=== PATIENT | male | born 1965 | race American Indian/Alaskan Native ===

== ENCOUNTER 2019-12-08 16:47 | Emergency (ER) | payer OTHER ==
[2019-12-08] MEDS ORDERED: LIDOCAINE (1%) 10 MG/1 ML VIAL 20 ML MDV INFILTRATI ONE (17:55)
[2019-12-08] MEDS ORDERED: PHENYLEPHRINE 1 MG, SODIUM CHLORIDE P/F VIAL 10 ML 9.9 ML IJ**NOT IV ONE (17:55)
[2019-12-08] MEDS ORDERED: SODIUM CHLORIDE 0.9% 1000 ML 1,000 ML IV ONE (17:56)
--- NOTE | 2019-12-08 17:59 | Emergency Department Report ---
HPI - General Chief Complaint: Urogenital-Male Time Seen by Provider: 12/08/19 17:27 - HPI HPI: 54-year-old male presents to the emergency department with a painful erection since yesterday morning. Just prior to this, the patient had taken 2 of his trazodone, that he takes for PTSD. Patient says that he tried to treated at home with "ice, my girl" and thought it would go away. This morning he called the [facility] and "I had to wait for them to call me back and they eventually did and told me just to go to the ER." This has never happened to him previously. ED Past Medical Hx - Past Medical History Previous Medical History?: Yes Hx Psychiatric Treatment: Yes (PTSD) Hx Asthma: Yes - Surgical History Past Surgical History?: No - Social History Smoking Status: Current Every Day Smoker Substance Use Type: None ED Review of Systems ROS: Stated complaint: PRIAPISM Other details as noted in HPI Comment: All other systems reviewed and negative Constitutional: denies: chills, fever Respiratory: denies: shortness of breath Cardiovascular: denies: chest pain Gastrointestinal: denies: abdominal pain, vomiting Genitourinary: other (priapism). denies: testicular pain Skin: denies: rash, lesions Physical Exam - Physical Exam Vital Signs: Vital Signs 12/08/19 17:07 Temperature 98.4 F Pulse Rate 84 Respiratory 16 Rate Blood Pressure 167/106 O2 Sat by Pulse 97 Oximetry Physical Exam: GENERAL: The patient is well-developed well-nourished. HENT: Normocephalic. Atraumatic. Patient has moist mucous membranes. EYES: Extraocular motions are intact. NECK: Supple. Trachea is midline. CHEST/LUNGS: Clear to auscultation. There is no respiratory distress noted. HEART/CARDIOVASCULAR: Regular. There is no tachycardia. ABDOMEN: Abdomen is soft, nontender. Patient has normal bowel sounds. SKIN: Skin is warm and dry. NEURO: The patient is awake, alert, and oriented. The patient is cooperative. The patient has no focal neurologic deficits. Normal speech. MUSCULOSKELETAL: There is no tenderness or deformity. There is no evidence of acute injury. : Patient has an erection. Penile shaft is tender to palpation. No erythema, swelling, rash or lesions. ED Course Vital Signs 12/08/19 17:07 Temperature 98.4 F Pulse Rate 84 Respiratory 16 Rate Blood Pressure 167/106 O2 Sat by Pulse 97 Oximetry - Consultations Consultation #1: 12/08/19 20:40 I attempted to treat the patient's priapism with a dorsal penile block followed by drainage of blood, irrigation, and injection of phenylephrine. This did not work. His cavernous venous blood gas came back showing severe ischemia. For these reasons I spoke with the neurologist at [place], Dr. Banuelos, who has accepted the patient for transfer to the [facility] for further evaluation. - Nerve Block Consent Obtained: verbal consent Time Out Performed: Yes Local Anesthetic Used: Lidocaine 1% Amount of anesthesia used: 6 Nerve Blocks: other (Dorsal penile block) Procedure Successful: Yes Complications: none Patient Tolerated Procedure: well - Penile Procedure Consent Obtained: verbal consent Time Out Performed: Yes Indication: priapism management Procedural Sedation: No Local Anesthesia Used: Penile Nerve Block Amount of Anesthesia Used (mls): 6 Priapism Management: aspiration, phenylephrine injection Complications: none Patient Tolerated Procedure: well ED Medical Decision Making - Medical Decision Making This patient presents with a 36-hour history of priapism that appears most likely secondary to his trazodone use. Patient was given a dorsal penile block with good success and without any obvious complications. Cavernosus venous blood gas was obtained that shows a pH of 6.85, PCO2 of 105, and a PO2 of 3 that is all concerning for severe ischemia from the priapism. We attempted treatment with aspiration, irrigation and phenylephrine injection but there was no improvement in the priapism. For this reason, along with the venous blood gas results, I contacted [facility] and the patient was accepted for transfer to their emergency department for evaluation from the urology service. Critical Care Time: No Critical care attestation.: If time is entered above; I have spent that time in minutes in the direct care of this critically ill patient, excluding procedure time. ED Disposition Clinical Impression: Priapism Hypertension Qualifiers: Hypertension type: essential hypertension Qualified Code(s): I10 - Essential (primary) hypertension Disposition: DC/TX-70 ANOTHER TYPE HLTHCARE Is pt being admited?: No Condition: Fair Time of Disposition: 22:15
[2019-12-08 18:41] LABS: ABG Base Excess -17.6 mmol/L (-2.0-3.0); ABG HCO3 18.3 mmol/L (20.0-26.0)
[2019-12-08 18:54] LABS: ABG Methemoglobin 0.6 % (0.0-1.5); ABG Oxygen Saturation 2.5 % (95.0-99.0)
[2019-12-08 19:00] LABS: ABG PH 6.856 pH Units (7.350-7.450); ABG PO2 3.2 mm Hg (80.0-90.0)
[2019-12-08 20:13] VITALS: BP 168/121
== END 2019-12-08 20:52 | disposition other institution (70) ==
LOC: ED 16:47
DX: N48.39 Other priapism (principal); J45.909 Unspecified asthma, uncomplicated; F43.10 Post-traumatic stress disorder, unspecified; F17.200 Nicotine dependence, unspecified, uncomplicated
CPT/HCPCS: 54220; 82803; 99284; J2370; J7030